=== PATIENT | female | born 1945 | race Caucasian/White ===

== ENCOUNTER 2022-08-13 14:48 | Emergency (ER) | payer OTHER ==
[~2022-08-13] VITALS: Ht 160 cm; Wt 59.0 kg
[2022-08-13 15:27] LABS: BASOPHILS # (AUTO) 0.1 (0.0-0.1); BASOPHILS % 0.5 % (0.0-1.0); EOSINOPHILS # (AUTO) 0.1 (0.0-0.4); EOSINOPHILS % 0.7 % (0.0-6.0); HEMATOCRIT 23.8 % (34.2-44.1); LYMPHOCYTES # (AUTO) 2.3 (1.0-3.2); LYMPHOCYTES % 17.9 % (18.0-39.1); MEAN CORPUSCULAR HEMOGLOBIN 24.1 pg (28-32); MEAN CORPUSCULAR HGB CONC 29.4 g/dL (31-35); MEAN CORPUSCULAR VOLUME 81.8 fL (81-99); MONOCYTES % 7.4 % (4.4-11.3); NEUTROPHILS # (AUTO) 9.3 (2.1-6.9); PLATELET COUNT 530 x10e3/uL (140-360); RED BLOOD COUNT 2.91 x10e6/uL (3.6-5.1); RED CELL DISTRIBUTION WIDTH 15.3 % (11.7-14.4)
[2022-08-13 15:43] LABS: ALBUMIN 3.5 g/dL (3.5-5.0); ALBUMIN/GLOBULIN RATIO 0.9 (0.8-2.0); ANION GAP 13.9 mmol/L (8-16); CREATININE, SERUM 1.18 mg/dL (0.57-1.11); POTASSIUM 3.9 mmol/L (3.5-5.1)
[2022-08-13] MEDS ORDERED: FERROUS FUMARA324 MG PO (16:17)
== END 2022-08-13 16:26 | disposition home or self-care (01) ==
LOC: ER 15:03
DX: D50.9 Iron deficiency anemia, unspecified (principal)
CPT/HCPCS: 36415; 80053; 85025; 99283